=== PATIENT | male | born 1950 | race Caucasian/White ===

== ENCOUNTER → 2017-05-10 | Outpatient (CLI) | payer MEDICARE ==
[~2017-05-10] MED LIST: ASPIRIN81 M2 PO; BACTRIM DS TABL1 TA1; LIPITOR40 MG PO; LISINOPRIL-HCTZ1 T18 PO; TOPROL XL100 MG PO
--- NOTE | ~2017-05-10 | CT57 ---
[facility] A Service of [facility] RADIOLOGY TEXT RESULTS PATIENT: SHAWN JESUS LOCATION: [facility] : 54 UNIT #: [id number] AGE: [address]: Elvira Gordon SEX: M ORDER DR: [id number] [address] [address] [id number] O MR#: [id number] Acc #: [id number] NAME: SHAWN JESUS : 1950 SEX: M STUDY DATE/TIME: 05/10/2017 14:33 UNIT: [facility] ROOM: STUDY DESCRIPTION: CT Chest Wo Cont Attending Physician: Elvira Gordon A.P.R.N. Referring Physician: Elvira Gordon A.P.R.N. Ordering Physician: Elvira Gordon A.P.R.N. Primary Care Physician: Abilio Flanagan M.D. MEDICAL IMAGING REPORT This report is preliminary unless electronic signature is present. EXAM Chest CT, 05/10 INDICATION Followup pulmonary nodule. Patient has no current complaints. TECHNIQUE Axial 2.0 mm images were obtained through the chest without contrast. Multiplanar reformats were obtained. This CT exam was performed with one or more of the following radiation dose reduction techniques: automatic exposure control, adjustment of mA and/or kV according to patient size, and iterative reconstruction. COMPARISON 09/28/[address] abdomen and pelvis from 05/25/2016. FINDINGS No pleural or pericardial effusion is seen. There is no adenopathy. There is coronary artery disease. There is a 7.0 mm right middle lobe nodule which is not significantly changed from 05/25/2016. 10.0 mm left lower lobe nodule is also unchanged from that study. There is chronic scarring or atelectasis in the right lower lobe. No new or enlarging pulmonary nodules are seen. There is degenerative disease in the shoulder and thoracic spine. Upper abdomen shows fatty infiltration of the liver. Presumed calcified nodes in the carlee hepatis are unchanged. There is a left renal cyst. IMPRESSION 1. Stable appearance of right middle and left lower lobe nodules since 05/25/2016. Additional chest CT followup on or after 05/25/2018 is recommended to document 2-year stability and the benign nature of these lesions. [facility] A Service of [facility] RADIOLOGY TEXT RESULTS PATIENT: SHAWN JESUS LOCATION: [facility] : 54 UNIT #: [id number] AGE: [address]: Elvira Gordon SEX: M ORDER DR: 2. No new lesions are seen. There is stable chronic atelectasis or scarring in the right lower lobe. 3. Coronary artery disease and hepatic steatosis. Dictated by... Gabriel Fitch Jr., M.D. THIS IS AN ELECTRONICALLY VERIFIED REPORT Gabriel Fitch Jr., M.D. at 05/11/2017 4:46 PM TORIE/moises TD: 05/11/2017 14:22 JOB #: [id number] MEDICAL IMAGING REPORT Page 1 of 1
== END | disposition home or self-care (01) ==
LOC: SCT 13:57
DX: R91.1 Solitary pulmonary nodule (principal); G47.33 Obstructive sleep apnea (adult) (pediatric); E66.9 Obesity, unspecified; R91.8 Other nonspecific abnormal finding of lung field; I25.10 Atherosclerotic heart disease of native coronary artery without angina pectoris; K76.0 Fatty (change of) liver, not elsewhere classified
CPT/HCPCS: 71250